=== PATIENT | female | born 1955 | race African-American/Black ===

== ENCOUNTER 2018-05-05 09:05 | Emergency (ER) | payer MEDICAID ==
[~2018-05-05] VITALS: Ht 152.4 cm; Wt 46.0 kg
[~2018-05-05 09:05] MED LIST: GABA-533 PO; HYDR25TA; LOSA25TA12 PO
[2018-05-05 09:23] VITALS: BP 179/115
[2018-05-05 15:32] LABS: BASOPHILS % 0.7 % (0.0-2.0); EOSINOPHILS % 0.7 % (0.0-5.0); HEMATOCRIT. 42.9 % (36.0-48.0); HEMOGLOBIN. 14.7 g/dL (12.0-16.0); LYMPHOCYTES % 35.1 % (20.0-50.0); MEAN CORPUSCULAR HEMOGLOBIN 31.3 pg (28.0-32.0); MEAN CORPUSCULAR VOLUME 91.4 fL (81.0-99.0); MEAN PLATELET VOLUME 10.1 fl (7.4-10.4); MONOCYTES % 8.8 % (2.0-8.0); NEUTROPHILS % 54.7 % (40.0-76.0); PLATELET 96 x1000/uL (130-400); RED BLOOD CELL COUNT 4.69 mill/uL (4.2-5.4); RED CELL DISTRIBUTION WIDTH 14.6 % (11.6-14.6)
[2018-05-05 15:33] LABS: CHLORIDE 106 mEq/L (98-107)
[2018-05-05] MEDS ORDERED: IOHEXOL-300 100 ML BOTTLE ONE (18:24)
== END 2018-05-05 19:16 | disposition home or self-care (01) ==
LOC: ER 09:05
DX: R22.1 Localized swelling, mass and lump, neck (principal)
CPT/HCPCS: 36415; 70487; 70491; 80048; 85025; 87070; 87430; 99285; Q9967; Z7610

== ENCOUNTER 2020-07-08 09:35 | Emergency (ER) | payer MEDICAID ==
[~2020-07-08] VITALS: Ht 152.4 cm; Wt 54.0 kg
[~2020-07-08 09:35] MED LIST changes: -LOSA25TA12 PO; +LOSA25TA26 PO
[2020-07-08 11:38] LABS: BASOPHILS % 0.7 % (0.0-2.0); EOSINOPHILS % 0.7 % (0.0-5.0); HEMATOCRIT. 41.8 % (36.0-48.0); HEMOGLOBIN. 14.2 g/dL (12.0-16.0); LYMPHOCYTES % 32.5 % (20.0-50.0); MEAN CORPUSCULAR HEMOGLOBIN 30.4 pg (28.0-32.0); MEAN CORPUSCULAR VOLUME 89.8 fL (81.0-99.0); MEAN PLATELET VOLUME 10.1 fl (7.4-10.4); MONOCYTES % 8.4 % (2.0-8.0); NEUTROPHILS % 57.7 % (40.0-76.0); PLATELET 115 x1000/uL (130-400); RED BLOOD CELL COUNT 4.65 mill/uL (4.2-5.4); RED CELL DISTRIBUTION WIDTH 13.9 % (11.6-14.6)
[2020-07-08 11:39] LABS: CHLORIDE 104 mEq/L (98-107)
[2020-07-08] MEDS ORDERED: KETOROLAC 30MG/ML VIAL IV ONE (11:45)
[2020-07-08 12:13] VITALS: BP 145/78
== END 2020-07-08 13:14 | disposition home or self-care (01) ==
LOC: ER 09:42
DX: M79.18 Myalgia, other site (principal); R60.9 Edema, unspecified; I10 Essential (primary) hypertension; Z88.6 Allergy status to analgesic agent; Z88.8 Allergy status to other drugs, medicaments and biological substances
CPT/HCPCS: 36415; 71045; 73502; 80053; 83880; 84484; 85025; 93005; 96374; 99285; J1885

== ENCOUNTER 2020-10-02 11:03 | Emergency (ER) | payer MEDICAID ==
[~2020-10-02] VITALS: Ht 162.6 cm; Wt 54.0 kg
[2020-10-02 14:30] VITALS: BP 148/76
[2020-10-02] MEDS ORDERED: NAPROXEN 250MG TABLET PO ONE (14:30)
== END 2020-10-02 14:54 | disposition home or self-care (01) ==
LOC: ER 11:03
DX: M25.571 Pain in right ankle and joints of right foot (principal); M79.671 Pain in right foot; I10 Essential (primary) hypertension; Z88.0 Allergy status to penicillin; Z88.6 Allergy status to analgesic agent; Z88.5 Allergy status to narcotic agent; Z88.8 Allergy status to other drugs, medicaments and biological substances
CPT/HCPCS: 73610; 73630; 99284

== ENCOUNTER 2021-03-07 08:53 | Emergency (ER) | payer MEDICARE, MEDICAID ==
[~2021-03-07] VITALS: Ht 162.6 cm; Wt 54.0 kg
[2021-03-07] MEDS ORDERED: FAMO20TA8 MT (10:28)
[2021-03-07] MEDS ORDERED: NAPR-681 MT (10:28)
[2021-03-07 10:46] VITALS: BP 161/80
== END 2021-03-07 10:48 | disposition home or self-care (01) ==
LOC: ER 08:53
DX: J02.9 Acute pharyngitis, unspecified (principal); K21.9 Gastro-esophageal reflux disease without esophagitis; I10 Essential (primary) hypertension; K76.9 Liver disease, unspecified; Z88.0 Allergy status to penicillin; Z88.6 Allergy status to analgesic agent; Z88.8 Allergy status to other drugs, medicaments and biological substances; Z79.899 Other long term (current) drug therapy; Z76.0 Encounter for issue of repeat prescription
CPT/HCPCS: 99283; J7040; 99281

== ENCOUNTER 2022-03-19 08:49 | Emergency (ER) | payer MEDICARE, MEDICAID ==
[~2022-03-19] VITALS: Ht 152.4 cm; Wt 55.0 kg
[~2022-03-19 08:49] MED LIST changes: +AMLO10TA80 PO; +ATEN50TA PO; +FAMO20TA8 MT; +METF-414 PO; +MOXI3DRO12 EACHEYE; +NAPR-681 MT; +OFLO5DRO3 EACHEYE; +PANT20TA17 PO; +PRED5DRO22 BOTHEYE; +PREG75CA PO
[2022-03-19] MEDS ORDERED: IBUPROFEN 600MG TABLET PO NR (09:15)
[2022-03-19] MEDS ORDERED: ACETAMINOPHEN 325MG TABLET PO NR (09:15)
[2022-03-19] MEDS ORDERED: IBUP-2029 MT (09:28)
[2022-03-19 10:25] VITALS: BP 127/86
== END 2022-03-19 10:27 | disposition home or self-care (01) ==
LOC: ER 09:11
DX: J02.9 Acute pharyngitis, unspecified (principal); M54.2 Cervicalgia; E11.9 Type 2 diabetes mellitus without complications; I10 Essential (primary) hypertension; Z79.899 Other long term (current) drug therapy
CPT/HCPCS: 99282

== ENCOUNTER 2022-06-13 09:40 | Emergency (ER) | payer MEDICARE, MEDICAID ==
[~2022-06-13] VITALS: Ht 157.5 cm; Wt 52.0 kg
[~2022-06-13 09:40] MED LIST changes: +IBUP-2029 MT
[2022-06-13 09:42] VITALS: BP 154/85
[2022-06-13] MEDS ORDERED: KETOROLAC 30MG/ML VIAL IM STA (10:46)
[2022-06-13] MEDS ORDERED: ONDANSETRON 4MG ODT PO STA (10:46)
[2022-06-13 11:16] LABS: BASOPHILS % 0.5 % (0.0-2.0); EOSINOPHILS % 1.4 % (0.0-5.0); HEMATOCRIT. 42.6 % (36.0-48.0); HEMOGLOBIN. 14.2 g/dL (12.0-16.0); LYMPHOCYTES % 39.6 % (20.0-50.0); MEAN CORPUSCULAR HEMOGLOBIN 30.1 pg (28.0-32.0); MEAN CORPUSCULAR VOLUME 90.4 fL (81.0-99.0); MEAN PLATELET VOLUME 10.7 fl (7.4-10.4); MONOCYTES % 13.3 % (2.0-8.0); NEUTROPHILS % 45.2 % (40.0-76.0); PLATELET 103 x1000/uL (130-400); RED BLOOD CELL COUNT 4.72 mill/uL (4.2-5.4); RED CELL DISTRIBUTION WIDTH 14.4 % (11.6-14.6)
[2022-06-13 11:24] LABS: CHLORIDE 108 mEq/L (98-107)
[2022-06-13 11:53] LABS: CLARITY URINE CLEAR (CLEAR); COLOR URINE YELLOW (YELLOW); KETONES URINE NEGATIVE (NEGATIVE); LEUKOCYTE ESTERASE URINE NEGATIVE (NEGATIVE); NITRITE URINE NEGATIVE (NEGATIVE); OCCULT BLOOD URINE TRACE (NEGATIVE); PH URINE 5.5 (4.5-8.0); PROTEIN URINE NEGATIVE (NEGATIVE); SPECIFIC GRAVITY URINE 1.014 (1.005-1.030); UROBILINOGEN URINE 0.2 E.U./dL (0.2-1.0)
[2022-06-13] MEDS ORDERED: CEFTRIAXONE SODIUM 1 G/VIAL IM ONE (13:15)
[2022-06-13] MEDS ORDERED: LIDOCAINE HCL/EPINEPHRINE 1%-EPI 1:100,000 50 ML VIAL INFIL ONE (13:15)
[2022-06-13] MEDS ORDERED: METR-167 MT ×3 (13:16→13:17)
[2022-06-13] MEDS ORDERED: CIPR500T5 MT (13:18)
== END 2022-06-13 13:39 | disposition home or self-care (01) ==
LOC: ER 09:40
DX: K57.32 Diverticulitis of large intestine without perforation or abscess without bleeding (principal); E11.9 Type 2 diabetes mellitus without complications; I10 Essential (primary) hypertension; K76.9 Liver disease, unspecified; Z79.84 Long term (current) use of oral hypoglycemic drugs; Z88.6 Allergy status to analgesic agent; Z88.5 Allergy status to narcotic agent; Z88.0 Allergy status to penicillin
CPT/HCPCS: 36415; 74176; 80053; 81003; 83690; 85025; 96372; 99284; J0696; J1885; Q0162

== ENCOUNTER 2022-06-22 05:34 | Emergency (ER) | payer MEDICARE, MEDICAID ==
[~2022-06-22] VITALS: Ht 152.4 cm; Wt 57.1 kg
[~2022-06-22 05:34] MED LIST changes: +CIPR500T5 MT; +METR-167 MT
[2022-06-22] MEDS ORDERED: KETOROLAC 30MG/ML VIAL IV STA (06:39)
[2022-06-22] MEDS ORDERED: SODIUM CHLORIDE 0.9% 1,000 ML IV ONE (06:45)
[2022-06-22 07:19] LABS: BASOPHILS % 1.1 % (0.0-2.0); EOSINOPHILS % 1.7 % (0.0-5.0); HEMATOCRIT. 44.9 % (36.0-48.0); HEMOGLOBIN. 15.1 g/dL (12.0-16.0); LYMPHOCYTES % 43.6 % (20.0-50.0); MEAN CORPUSCULAR HEMOGLOBIN 30.4 pg (28.0-32.0); MEAN CORPUSCULAR VOLUME 90.8 fL (81.0-99.0); MEAN PLATELET VOLUME 10.5 fl (7.4-10.4); MONOCYTES % 9.3 % (2.0-8.0); NEUTROPHILS % 44.3 % (40.0-76.0); PLATELET 99 x1000/uL (130-400); RED BLOOD CELL COUNT 4.94 mill/uL (4.2-5.4); RED CELL DISTRIBUTION WIDTH 14.5 % (11.6-14.6)
[2022-06-22 07:21] LABS: CHLORIDE 105 mEq/L (98-107)
[2022-06-22] MEDS ORDERED: ACETAMINOPHEN 325MG TABLET PO ONE (07:45)
[2022-06-22 07:58] LABS: CLARITY URINE CLEAR (CLEAR); COLOR URINE YELLOW (YELLOW); KETONES URINE TRACE (NEGATIVE); LEUKOCYTE ESTERASE URINE NEGATIVE (NEGATIVE); NITRITE URINE NEGATIVE (NEGATIVE); OCCULT BLOOD URINE TRACE (NEGATIVE); PH URINE 5.5 (4.5-8.0); PROTEIN URINE NEGATIVE (NEGATIVE); SPECIFIC GRAVITY URINE 1.021 (1.005-1.030); UROBILINOGEN URINE 0.2 E.U./dL (0.2-1.0)
[2022-06-22] MEDS ORDERED: TOPUD PO (08:34)
[2022-06-22 09:18] VITALS: BP 197/92
== END 2022-06-22 09:22 | disposition home or self-care (01) ==
LOC: ER 05:51
DX: R10.9 Unspecified abdominal pain (principal); E11.9 Type 2 diabetes mellitus without complications; I10 Essential (primary) hypertension; H26.9 Unspecified cataract; K74.60 Unspecified cirrhosis of liver; Z88.0 Allergy status to penicillin; Z88.6 Allergy status to analgesic agent; Z88.8 Allergy status to other drugs, medicaments and biological substances
CPT/HCPCS: 36415; 74176; 80053; 81003; 83690; 85025; 96361; 96374; 99284; J1885; J7030

== ENCOUNTER 2022-09-03 12:37 | Emergency (ER) | payer MEDICARE, MEDICAID ==
[~2022-09-03] VITALS: Ht 152.4 cm; Wt 58.0 kg
[~2022-09-03 12:37] MED LIST changes: +TOPUD PO
[2022-09-03] MEDS ORDERED: SODIUM CHLORIDE 0.9% 1,000 ML IV ONE (14:00)
[2022-09-03] MEDS ORDERED: KETOROLAC 15MG/ML VIAL IV ONE (14:15)
[2022-09-03] MEDS ORDERED: CLONIDINE 0.2MG TABLET PO ONE (14:15)
[2022-09-03 15:00] VITALS: BP 218/113
[2022-09-03 15:28] LABS: BASOPHILS % 0.8 % (0.0-2.0); EOSINOPHILS % 1.3 % (0.0-5.0); HEMATOCRIT. 47.9 % (36.0-48.0); HEMOGLOBIN. 16.1 g/dL (12.0-16.0); LYMPHOCYTES % 38.3 % (20.0-50.0); MEAN CORPUSCULAR HEMOGLOBIN 30.3 pg (28.0-32.0); MEAN CORPUSCULAR VOLUME 90.1 fL (81.0-99.0); MEAN PLATELET VOLUME 10.7 fl (7.4-10.4); MONOCYTES % 12.1 % (2.0-8.0); NEUTROPHILS % 47.5 % (40.0-76.0); PLATELET 94 x1000/uL (130-400); RED BLOOD CELL COUNT 5.32 mill/uL (4.2-5.4); RED CELL DISTRIBUTION WIDTH 13.7 % (11.6-14.6)
[2022-09-03 15:32] LABS: CHLORIDE 106 mEq/L (98-107)
[2022-09-03 15:45] LABS: CLARITY URINE CLEAR (CLEAR); COLOR URINE YELLOW (YELLOW); KETONES URINE NEGATIVE (NEGATIVE); LEUKOCYTE ESTERASE URINE NEGATIVE (NEGATIVE); NITRITE URINE NEGATIVE (NEGATIVE); OCCULT BLOOD URINE TRACE (NEGATIVE); PROTEIN URINE 1+ (NEGATIVE); SPECIFIC GRAVITY URINE 1.015 (1.005-1.030); UROBILINOGEN URINE 0.2 E.U./dL (0.2-1.0)
[2022-09-03] MEDS ORDERED: AMLO5TAB4 MT (16:10)
[2022-09-03] MEDS ORDERED: ATEN50TA MT (16:10)
[2022-09-03] MEDS ORDERED: CLONIDINE 0.1MG TABLET PO ONE (16:15)
[2022-09-03] MEDS ORDERED: IBUP-2028 MT (16:22)
== END 2022-09-03 15:30 | disposition home or self-care (01) ==
LOC: ER 12:46
DX: R10.9 Unspecified abdominal pain (principal); D25.9 Leiomyoma of uterus, unspecified; K80.20 Calculus of gallbladder without cholecystitis without obstruction; I10 Essential (primary) hypertension; E11.9 Type 2 diabetes mellitus without complications; Z88.0 Allergy status to penicillin; Z88.6 Allergy status to analgesic agent; Z88.8 Allergy status to other drugs, medicaments and biological substances
CPT/HCPCS: 36415; 71045; 74176; 80053; 81003; 83690; 84484; 85025; 93005; 96361; 96374; 99285; J1885; J7030